=== PATIENT | male | born 1945 | race Hispanic/Latino ===

== ENCOUNTER 2021-06-11 10:08 | Outpatient (CLI) | payer BC, MEDICARE | END 2021-06-11 10:09 | disposition home or self-care (01) | LOC: BURRAD 10:08 | PROVIDERS: ATTEND Registered Nurse Community Health | DX: S91.301A Unspecified open wound, right foot, initial encounter (principal); M19.071 Primary osteoarthritis, right ankle and foot; I70.90 Unspecified atherosclerosis ==

== ENCOUNTER 2021-10-03 14:34 | Outpatient (CLI) | payer BC | END 2021-10-03 14:35 | disposition home or self-care (01) | LOC: BURRAD 14:34 | PROVIDERS: ATTEND Family Medicine | DX: S69.92XD Unspecified injury of left wrist, hand and finger(s), subsequent encounter (principal) ==